=== PATIENT | female | born 1960 | race Two or more races ===

== ENCOUNTER 2024-02-26 06:56 | Emergency (ER) | payer MEDICAID, SELFPAY ==
[2024-02-26 06:57] VITALS: BMI 41.8
[2024-02-26 07:04] VITALS: BP 101/70; PULSE 87; RESP 18; TEMP 36.6; O2SAT 98
--- NOTE | 2024-02-26 07:18 | XR_ITS ---
Examination: Foot, left, 3 views Technique: AP, oblique, lateral views foot, 3 views Date and time of exam: February 25, 2022 0755 hours INDICATIONS: Patient fell today with injury to the foot, foot pain FINDINGS: No acute fracture No dislocation No foreign body IMPRESSION: No acute fracture
--- NOTE | 2024-02-26 07:18 | XR_ITS ---
Examination: Shoulder,right, 3 views Technique: Shoulder AP internal rotation, AP external rotation, Y view shoulder, 3 views Exam date and time :February 26, 2024 0755 hours INDICATIONS: Right shoulder pain beginning 6 months ago FINDINGS: Mild osteoarthritis glenohumeral joint Mild calcific tendinitis No fracture or shoulder dislocation IMPRESSION: Mild osteoarthritis glenohumeral joint Mild calcific tendinitis
[2024-02-26] MEDS: KETOROLAC INJ 30 MG/ML VIAL IM (07:44)
--- NOTE | 2024-02-26 09:34 | EDNOTE_ITS ---
ED Extremity Problem RME/HPI General Chief complaint: Extremity Problem,Nontraumatic Stated complaint: R SHOULDER PAIN [id number] Time Seen by Provider: 02/26/24 07:01 Arrival date/time: 02/26/24 06:56 63-year-old female presents to the emergency department today complaints of right shoulder pain which is acute on chronic as well as left foot pain after recent injury to the left foot patient reports that she has had previous right shoulder surgery with Dr. Watson there are no other associated symptoms or aggravat ing factors no other modifying factors, patient denies taking medication before coming to ER today Limitations: no limitations Related Data Home Medications ?Medication ?Instructions ?Recorded ?Confirmed ibuprofen 800 mg tablet 800 mg PO Q8HR PRN PAIN #0 tabs 01/31/14 08/17/21 albuterol sulfate 90 mcg/actuation 90 mcg IH BID PRN Wheezing ##0 10/08/14 08/17/21 breath activated powder inhaler (ProAir RespiClick) acetaminophen 500 mg tablet 500 mg PO Q6H PRN Pain 08/17/21 08/17/21 albuterol sulfate 90 mcg/actuation 2 puff inhalation Q6H PRN Wheezing 08/17/21 08/17/21 aerosol inhaler buspirone 5 mg tablet 1 tab PO BID 08/17/21 08/17/21 cyclobenzaprine 10 mg tablet 10 mg PO TID 08/17/21 08/17/21 diphenhydramine HCl 25 mg tablet 25 mg PO TID PRN Allergic Reaction 08/17/21 08/17/21 (Banophen) nifedipine 60 mg tablet,extended 60 mg PO QDAY 08/17/21 08/17/21 release 24 hr trazodone 100 mg tablet 100 mg PO QDAY 08/17/21 08/17/21 venlafaxine 150 mg 150 mg PO QAM 08/17/21 08/17/21 capsule,extended release 24 hr Previous Rx's ?Medication ?Instructions ?Recorded tramadol 50 mg tablet (Ultram) 1 - 2 tab PO Q6HR PRN PAIN #20 tabs 12/15/14 cyclobenzaprine 10 mg tablet 10 mg PO TID PRN muscle spasm 10 02/26/24 days #30 tab-caps hydrocodone 5 mg-acetaminophen 325 1 tab PO BID PRN pain #8 tabs 02/26/24 mg tablet ibuprofen 600 mg tablet 600 mg PO Q6H #30 tabs 02/26/24 Allergies Allergy/AdvReac Type Severity Reaction Status Date / Time No Known Allergies Allergy Verified 02/26/24 06:58 Review of Systems Review of Systems Systems Reviewed: All systems reviewed, normal except as documented Constitutional Constitutional: Reports system reviewed and no additional complaints, except as documented, Denies fever(s) and Denies headache(s) Eyes Eyes: Reports system reviewed and no additional complaints, except as documented and Denies blurry vision ENT Ears, Nose, Mouth, and Throat: Reports system reviewed and no additional complaints, except as documented, Denies headache(s), Denies nasal congestion and Denies nasal discharge Cardiovascular Cardiovascular: Reports system reviewed and no additional complaints, except as documented, Denies chest pain and Denies dyspnea Respiratory Respiratory: Reports system reviewed and no additional complaints, except as documented, Denies chest congestion, Denies cough and Denies dyspnea Gastrointestinal Gastrointestinal: Reports system reviewed and no additional complaints, except as documented and Denies abdominal pain Musculoskeletal Musculoskeletal: Reports system reviewed and no additional complaints, except as documented, Reports abnormal gait, Reports arthralgias and Reports other (Foot pain, shoulder pain) Integumentary/Breasts Skin/Breast: Reports system reviewed and no additional complaints, except as documented and Denies rash Neurologic Neurologic: Reports system reviewed and no additional complaints, except as documented, Reports as per HPI, Reports abnormal gait and Denies headache(s) Past Medical History Past Medical History NEUROLOGIC: Negative Neurological Disorders CARDIAC: Negative Cardiac Disorders ED Exam General Limitations: Present no limitations General appearance: Present alert and in no apparent distress Head Head exam: Present atraumatic Eye Eye exam: Present normal appearance, PERRL and EOMI ENT ENT exam: Present normal exam, normal oropharynx and mucous membranes moist Neck Neck exam: Present normal inspection, full ROM and trachea midline Chest Chest inspection: Present normal inspection and symmetric chest wall rise Respiratory Respiratory exam: Present normal lung sounds bilaterally Cardiovascular Cardiovascular exam: Present regular rate, normal rhythm and normal heart sounds Abdominal Exam Abdominal exam: Present soft and normal bowel sounds Extremities Exam Extremities exam: Present full ROM, tenderness, normal capillary refill and other (Foot pain left, shoulder pain right) Back Exam Back exam: Present normal inspection and full ROM Neurological Exam Neurological exam: Present alert, oriented X3 and CN II-XII intact Psychiatric Psychiatric exam: Present normal affect and normal mood Skin Skin exam: Present warm, dry, intact and normal color Course Quality Measures none Orders Category Date Time Status XR foot comp LT min 3V Stat Exams 02/26/24 07:18 Completed XR shoulder RT min 2V Stat Exams 02/26/24 07:18 Completed Ketorolac Inj [Toradol Inj] Med 02/26/24 07:25 Discontinued 30 mg IM X1 ONE Vital Signs Vital signs: Vital Signs Temperature 97.9 F 02/26/24 07:04 Pulse Rate 87 02/26/24 07:04 Respiratory Rate 18 02/26/24 07:04 Blood Pressure 101/70 02/26/24 07:04 Pulse Oximetry (%) 98 02/26/24 07:04 Oxygen Delivery Method Room Air 02/26/24 07:04 O2 saturation 98% on room air within normal limits Extremity Problem MDM Narrative MDM Narrative:: 63-year-old female presents to the emergency department today complaints of right shoulder pain which is acute on chronic as well as left foot pain after recent injury to the left foot patient reports that she has had previous right shoulder surgery with Dr. Watson there are no other associated symptoms or aggravating factors no other modifying factors, patient denies taking medication before coming to ER today Imaging obtained no acute emergent findings noted Patient given pain medication discharged home with pain meds On exam patient well-appearing patient does not appear ill or toxic patient walks with steady gait Patient discharged home in no distress to follow-up with orthopedist as discussed and for any worsening symptoms to return to the ER immediately Patient data External records reviewed:: [facility] previous records Clinical information provided by:: patient Social determinants that could affect healthcare access:: none Patient has the following chronic illnesses:: See history How is presenting disease/condition affected by chronic disease/condition?: exacerbated by Evaluation data The following diagnostics were reviewed and interpreted by me:: radiology exam(s) Lab and/or radiology exams considered but not ordered:: Radiology obtain Interpretation Summary: Reviewed by me Medications / Prescriptions Medications or Prescriptions considered but not ordered:: Given Medication administrations:: Medication Administration History Discontinued Medications Ketorolac Tromethamine (Ketorolac Inj 30 Mg/Ml Vial) 30 mg IM X1 ONE Stop: 02/26/24 07:26 Last Admin: 02/26/24 07:44 Dose: 30 mg Documented By: VG Given Consultations Consultation(s) initiated? (list below): No Diagnosis Most likely diagnosis given after review of the tests above:: Foot pain, foot fracture shoulder pain Admission Indicated Admission indicated?: not indicated Admission Request Was there a request for admission?: No Disposition Plan Disposition Plan: Discharge Discharge Attestation Discharge Attestation: The patient and all family members were given an opportunity to ask questions and understood the discharge instructions. Discharge instructions specifically effects, indications for sooner follow up or return to the emergency department, and the expected course of current diagnosis. Patient condition: Stable Discharge Plan Plan Patient Disposition: HOME (Self Care) Disposition Comment: Stable Prescriptions/Referrals Prescriptions/Med Rec: New cyclobenzaprine 10 mg tablet 10 mg PO TID PRN (Reason: muscle spasm) 10 Days Qty: 30 0RF hydrocodone-acetaminophen 5-325 mg tablet 1 tab PO BID MDD 10 PRN (Reason: pain) Qty: 8 0RF ibuprofen 600 mg tablet 600 mg PO Q6H Qty: 30 0RF No Action ibuprofen 800 MG tablet 800 mg PO Q8HR PRN (Reason: PAIN) Qty: 0 ProAir RespiClick 90 MCG aerosol powdr breath activated 90 mcg IH BID PRN (Reason: Wheezing) Qty: 0 tramadol [Ultram] 50 MG tablet 1 - 2 tab PO Q6HR PRN (Reason: PAIN) Qty: 20 0RF Rx Instructions: FOR PAIN, NOT TO EXCEED 8 TABS IN 24 HRS cyclobenzaprine 10 mg Tablet 10 mg PO TID buspirone 5 mg tablet 1 tab PO BID venlafaxine 150 mg Capsule,Extended Release 24hr 150 mg PO QAM acetaminophen 500 mg Tablet 500 mg PO Q6H PRN (Reason: Pain) nifedipine 60 mg Tablet Extended Release 24hr 60 mg PO QDAY trazodone 100 mg Tablet 100 mg PO QDAY diphenhydramine HCl [Banophen] 25 mg Tablet 25 mg PO TID PRN (Reason: Allergic Reaction) albuterol sulfate 90 mcg/actuation Hfa Aerosol Inhaler 2 puff INHALATION Q6H PRN (Reason: Wheezing) Referrals: Bucky King PA-C [Primary Care Provider] - In 1 week Problem List Clinical Impression: Acute pain of left foot, Chronic pain in right shoulder Patient/Caregiver Discharge Instructions Education Materials: ED RICE Additional Instructions: Please follow up with your primary care doctor in the next 24-48hrs for any worsening symptoms return here immediately Print Language: Fijian Stand Alone Forms: Brooke Award Info., Patient Portal Info Letter PA/[employer] Supervising Physician PA/[employer] Supervising Physician: Dr perez
== END 2024-02-26 09:45 | disposition home or self-care (01) ==
PROVIDERS: Emergency Provider Emergency Medicine; PCP Family Medicine
DX: M25.511 Pain in right shoulder (principal); M79.672 Pain in left foot; G89.29 Other chronic pain
CPT/HCPCS: 73030; 73630; 96372; 99283; J1885

== ENCOUNTER → 2024-07-03 | Outpatient (CLI) | payer MEDICARE, MEDICAID, SELFPAY ==
[2024-07-02 15:34] LABS: Albumin, Serum 4.1 gm/dL (3.4-4.8); Anion Gap 6 (7-16); BUN/Creatinine Ratio 15 Ratio (12-20); Blood Urea Nitrogen 18 mg/dL (9-23); Calcium 9.3 mg/dL (8.3-10.6); Calcium (Corrected) 9.3 mg/dL (8.5-10.1); Carbon Dioxide 30.3 mMol/L (20.0-31.0); Chloride 110 mMol/L (98-107); Creatinine (Component) 1.2 mg/dL (0.6-1.3); Glucose 91 mg/dL (74-106); Osmolality,Calculated 292 (275-295); Phosphorous 3.1 mg/dL (2.4-5.1); Sodium 146 mMol/L (136-145); eGFR 50 See Note
--- NOTE | 2024-07-03 14:30 | XR_ITS ---
Examination: MRI pelvis with intravenous contrast TECHNIQUE: Multiple axial sagittal coronal MR images pelvis post 18 cc gadolinium Examination type 07/03/2024 1538 hours INDICATIONS: Abnormally thickened endometrial stripe on outside ultrasound imaging this month, vaginal bleeding one year. FINDINGS: Uterus 10.6 x 5.3 x 5.9 cm Markedly abnormal thickened endometrial stripe, measuring up to 4.2 cm with irregular enhancement Ovaries are not enlarged, 9 mm left ovarian follicular cyst No common iliac and external iliac or common femoral lymphadenopathy IMPRESSION: Markedly thickened endometrial stripe with irregular enhancement, highest on the differential list is malignant neoplasm of the endometrium
== END | disposition home or self-care (01) ==
LOC: COPL 14:33
PROVIDERS: PCP Family Medicine
DX: R93.89 Abnormal findings on diagnostic imaging of other specified body structures (principal); F32.9 Major depressive disorder, single episode, unspecified; N18.31 Chronic kidney disease, stage 3a; I12.9 Hypertensive chronic kidney disease with stage 1 through stage 4 chronic kidney disease, or unspecified chronic kidney disease
CPT/HCPCS: 36415; 72196; 80069; A9579

== ENCOUNTER 2024-07-10 20:57 | Emergency (ER) | payer MEDICAID, SELFPAY ==
[2024-07-10 21:30] VITALS: BP 132/84; PULSE 82; RESP 20; TEMP 37.2; O2SAT 95; BMI 41.6
--- NOTE | 2024-07-10 21:37 | XR_ITS ---
Examination: CT brain head without contrast. 2-D sagittal coronal reconstructions Date and time of exam:July 10, 2024 and 47 hours INDICATIONS: Patient fell today with injury head, head pain CTDI: vol (mGy):76.7 DLP: (mGycm):409 Technique: Multiple CT axial sections of the brain have been obtained, 5 mm slice thickness. Contrast has not been administered. 2-D sagittal, coronal reconstructions have been obtained Low dose protocols were performed. One or more of the following dose reduction techniques were used; automated exposure control, adjustment of the mA and/or KV according to patient size, use of iterative reconstruction technique. Findings: No significant ventricular enlargement. Intra-axial or extra-axial hemorrhage density is not seen. No mass effect or midline shift Basal cisterns are not remarkable. Fourth ventricle is midline. Cranial vault intact. Impression: Negative for acute hemorrhage, mass effect or midline shift
--- NOTE | 2024-07-10 21:37 | XR_ITS ---
Examination: CT maxillofacial, without intravenous contrast. 2-D sagittal reconstructions. 3-D reconstructions. Date and time of exam:July 10, 2024 at 1047 hours INDICATIONS: Patient fell today with injury to the face, facial pain CTDI: vol (mGy):56.2 DLP: (mGycm):1014 Technique: Multiple axial images of maxillofacial region, 3.0 mm slice thickness. 2-D sagittal and coronal reconstructions. 3-D reconstructions. Low dose protocols were performed. One or more of the following dose reduction techniques were used; automated exposure control, adjustment of the mA and/or KV according to patient size, use of iterative reconstruction technique. Findings: Frontal bone is intact No nasal bone fracture Orbital rims intact No depression zygomatic arches The optic globes exhibit symmetry Pterygoid plates magnum of and the mandible is intact The left mandibular condyle is more anteriorly situated in the temporal articulating fossa compared to the right side without definite dislocation, clinical correlation advised IMPRESSION: No acute facial fracture.
--- NOTE | 2024-07-10 21:37 | XR_ITS ---
Examination: CT cervical spine without contrast 2-D sagittal reconstructions 2-D coronal reconstructions 3-D reconstructions. Exam date and time:July 10, 2024 1047 hours INDICATIONS: Patient fell today with injury to the neck, neck pain CTDI:vol (mGy) 56.2 DLP: (mGycm) 1000 Technique: Multiple 2 mm axial sections of the cervical spine have been obtained. The coronal and sagittal reconstructions have been obtained. 3-D reconstructions have been obtained. Low dose protocols were performed. One or more of the following dose reduction techniques were used; automated exposure control, adjustment of the mA and/or KV according to patient size, use of iterative reconstruction technique. Findings: Axial sections demonstrate intact base of the skull. C1 exhibit satisfactory relationship to the odontoid. No acute cervical vertebral body fracture seen. Alignment posterior spinous processes satisfactory. Impression: No acute cervical fracture.
[2024-07-10] MEDS: ACYCLOVIR 800 MG TABLET PO (22:04)
--- NOTE | 2024-07-11 04:36 | EDNOTE_ITS ---
<Statement entered by Jeri Lawler MD - 07/12/24 04:27> As co-signing physician, I was present and available for consult prn. I concur with the plan and care as documented by the midlevel provider. ED Head Injury RME/HPI General Chief complaint: Head Injury Stated complaint: GARCIA, DIZZINESS, FALLS SP HEAD INJURY Time Seen by Provider: 07/10/24 21:37 Arrival date/time: 07/10/24 20:57 64F with history of DM presents to ED with GARCIA and dizziness after trip and fall several days ago where she hit her head. Separately, patient has had a rash on the L side of her face for several days. Patient denies eye pain, irritation, blurry vision, and vision changes. Patient even went to eye doctor recently who did not address the eyelid rash, though patient did not have the full facial rash at the time. Limitations: no limitations Related Data Home Medications ?Medication ?Instructions ?Recorded ?Confirmed ibuprofen 800 mg tablet 800 mg PO Q8HR PRN PAIN #0 t abs 01/31/14 08/17/21 albuterol sulfate 90 mcg/actuation 90 mcg IH BID PRN W heezing ##0 10/08/14 08/17/21 breath activated powder inhaler (ProAir RespiClick) acetaminophen 500 mg tablet 500 mg PO Q6H PRN Pain 11/3008/17/21 albuterol sulfate 90 mcg/actuation 2 puff inhalation Q 6H PRN Wheezing 08/17/21 08/17/21 aerosol inhaler buspirone 5 mg tablet 1 tab PO BID 08/17/21 cyclobenzaprine 10 mg tablet 10 mg PO TID 08/17/2111/30 diphenhydramine HCl 25 mg tablet 25 mg PO TID PRN Oc rgic Reaction 08/17/21 08/17/21 (Banophen) nifedipine 60 mg tablet,extended 60 mg PO QDAY 2 08/17/21 release 24 hr trazodone 100 mg tablet 100 mg PO QDAY 08/17/2111/30 venlafaxine 150 mg 150 mg PO QAM 08/17/2108/17 capsule,extended release 24 hr Previous Rx's ?Medication ?Instructions ?Recorded tramadol 50 mg tablet (Ultram) 1 - 2 tab PO Q6HR PRN P AIN #20 tabs 12/15/14 hydrocodone 5 mg-acetaminophen 325 1 tab PO BID PRN pa in #8 tabs 02/26/24 mg tablet ibuprofen 600 mg tablet 600 mg PO Q6H #30 tabs 02/25 acyclovir 800 mg tablet 800 mg PO Q4H 10 days #60 ta bs 07/11/24 Allergies Allergy/AdvReac Type Severity Reaction Status Date / Time No Known Allergies Allergy Verified 02/26/24 06:58 Review of Systems Review of Systems Systems Reviewed: All systems reviewed, normal except as documented Constitutional Constitutional: Reports system reviewed and no additional complaints, except as documented, Reports as per HPI, Denies fever(s) and Reports headache(s) ENT Ears, Nose, Mouth, and Throat: Reports as per HPI, Denies disequilibrium, Reports headache(s) and Reports vertigo Cardiovascular Cardiovascular: Reports system reviewed and no additional complaints, except as documented, Denies chest pain and Denies dyspnea Respiratory Respiratory: Reports system reviewed and no additional complaints, except as documented, Denies cough and Denies dyspnea Gastrointestinal Gastrointestinal: Reports system reviewed and no additional complaints, except as documented, Denies abdominal pain, Denies nausea and Denies vomiting Integumentary/Breasts Skin/Breast: Reports as per HPI, Reports rash and Reports skin pain Neurologic Neurologic: Reports system reviewed and no additional complaints, except as documented, Denies confusion, Denies disequilibrium, Reports headache(s) and Reports vertigo Psychiatric Psychiatric: Denies confusion Past Medical History Past Medical History NEUROLOGIC: Positive Cerebrovascular Accident (RIGHT SIDE ER VISIT) and Transient Ischemic Attacks (TIA) (NOT DIAGNOSED); Negative Neurological Disorders or Seizures CARDIAC: Positive Hypercholesterolemia (STOP MED PER PT) and Hypertension; Negative Cardiac Disorders, Congestive Heart Failure, Edema or Cellulitis RESPIRATORY: Positive Chronic Obstructive Pulmonary Disease (COPD) (HAS INHALER), Asthma and Tuberculosis (as a child, was treated) GASTROINTESTINAL: Positive Gastrointestinal Disorders, Gall Bladder Disease (NO SURG) and Gastroesophageal Reflux Disease; Negative Hepatitis GENITOURINARY: Positive Genitourinary Disorders (kidney infection due to stones) and Kidney Stones (NO SURG); Negative Renal Disease REPRODUCTIVE: Positive Previous Pregnancies (X4) MUSCULOSKELETAL: Positive Musculoskeletal Disorders and Arthritis ENDOCRINE: Positive Endocrine Disorders and Diabetes Mellitus Type 2 (no current medication); Negative Diabetes Mellitus Type 1 HEMATOLOGIC: Negative Blood Disorders PSYCHO/SOCIAL: Positive Depression (TAKES MED) and Anxiety (TAKES MED) OTHER HISTORY: Positive Falls (NO ER VISIT 05/30); Negative Hospitalization, Autoimmune Disease, Shingles, Blood Transfusions, Blood Transfusion Reaction, Anesthesia Reactions, Chemotherapy, Radiation Therapy, MRSA, Chicken Pox, Measles, Mumps or Cancer Family History FAMILY HISTORY: Positive Family Cardiac Disorders (FATHER ([place],HTN)) and Family Surgery (FATHER,MOTHER); Negative Family Psychiatric Problems, Family Respiratory Disorders, Family Gastrointestinal Problems, Family Cancer or Family Anesthesia Reaction Surgical History SURGICAL: Positive Tubal Ligation; Negative Cardiac Surgery or Pacemaker Social History SMOKING STATUS: Current every day smoker ED Exam General Limitations: Present no limitations General appearance: Present alert and in no apparent distress Head Head exam: Present atraumatic Eye Eye exam: Present normal appearance, PERRL and EOMI ENT ENT exam: Present normal exam, normal oropharynx and mucous membranes moist Neck Neck exam: Present normal inspection, full ROM and trachea midline Chest Chest inspection: Present normal inspection and symmetric chest wall rise Respiratory Respiratory exam: Present normal lung sounds bilaterally Cardiovascular Cardiovascular exam: Present regular rate, normal rhythm and normal heart sounds Abdominal Exam Abdominal exam: Present soft and normal bowel sounds Extremities Exam Extremities exam: Present normal inspection and full ROM Back Exam Back exam: Present normal inspection and full ROM Neurological Exam Neurological exam: Present alert, oriented X3 and CN II-XII intact Psychiatric Psychiatric exam: Present normal affect and normal mood Skin Skin exam: Present warm, dry, intact, normal color and rash Course Quality Measures none Orders Category Date Time Status CT cervical spine wo con Stat Exams 07/10/24 21:[address] facial bones wo con Stat Exams 07/10/24 21:[address] head/brain wo con Stat Exams 07/10/24 21:37 Completed Acyclovir [Zovirax] Med 07/10/24 21:43 Discontinued 800 mg PO X1 ONE Vital Signs Vital signs: Vital Signs Temperature 99 F 07/10/24 21:30 Pulse Rate 82 07/10/24 21:30 Respiratory Rate 20 07/10/24 21:30 Blood Pressure 132/84 H 07/10/24 21:30 Pulse Oximetry (%) 95 07/10/24 21:30 Oxygen Delivery Method Room Air 07/10/24 21:30 O2 at 99% on RA and WNLs Head Injury MDM Narrative MDM Narrative:: 64F with history of DM presents to ED with GARCIA and dizziness after trip and fall several days ago where she hit her head. Separately, patient has had a rash on the L side of her face for several days. Patient denies eye pain, irritation, blurry vision, and vision changes. Patient even went to eye doctor recently who did not address the eyelid rash, though patient did not have the full facial rash at the time. Physical exam reveals L-facial vesicular rash along CN V1 path. No current eye involvement. Normal pupil response and EOM. No gross head trauma. Patient is afebrile, calm, and alert. CT no acute abnormalities. Escort Patients given including to call back eye doctor in the morning for them to re-evaluate her. Patient data External records reviewed:: [facility] previous records Clinical information provided by:: patient Social determinants that could affect healthcare access:: none Patient has the following chronic illnesses:: DM How is presenting disease/condition affected by chronic disease/condition?: exacerbated by Evaluation data The following diagnostics were reviewed and interpreted by me:: radiology exam(s) Lab and/or radiology exams considered but not ordered:: ordered Interpretation Summary: above Medications / Prescriptions Medications or Prescriptions considered but not ordered:: ordered Medication administrations:: Medication Administration History Discontinued Medications Acyclovir (Acyclovir 800 Mg Tablet) 800 mg PO X1 ONE Stop: 07/10/24 21:44 Last Admin: 07/10/24 22:04 Dose: 800 mg Documented By: above Consultations Consultation(s) initiated? (list below): No Diagnosis Differential diagnosis head injury: concussion without loss of consciousness, epidural hematoma, closed head injury, subarachnoid hematoma, postconcussion syndrome, subdural hematoma and other (shingles of eyelid) Most likely diagnosis given after review of the tests above:: shingles of eyelid and CHI Admission Indicated Admission indicated?: not indicated Admission Request Was there a request for admission?: No Disposition Plan Disposition Plan: Discharge Discharge Attestation Discharge Attestation: The patient and all family members were given an opportunity to ask questions and understood the discharge instructions. Discharge instructions specifically effects, indications for sooner follow up or return to the emergency department, and the expected course of current diagnosis. Patient condition: Stable Discharge Plan Plan Patient Disposition: HOME (Self Care) Discharge Disposition comment: Stable Prescriptions/Referrals Prescriptions/Med Rec: New acyclovir 800 mg tablet 800 mg PO Q4H 10 Days Qty: 60 0RF Rx Instructions: while awake; give 5 doses in 24 hours No Action ibuprofen 800 MG tablet 800 mg PO Q8HR PRN (Reason: PAIN) Qty: 0 ProAir RespiClick 90 MCG aerosol powdr breath activated 90 mcg IH BID PRN (Reason: Wheezing) Qty: 0 tramadol [Ultram] 50 MG tablet 1 - 2 tab PO Q6HR PRN (Reason: PAIN) Qty: 20 0RF Rx Instructions: FOR PAIN, NOT TO EXCEED 8 TABS IN 24 HRS cyclobenzaprine 10 mg Tablet 10 mg PO TID buspirone 5 mg tablet 1 tab PO BID venlafaxine 150 mg Capsule,Extended Release 24hr 150 mg PO QAM acetaminophen 500 mg Tablet 500 mg PO Q6H PRN (Reason: Pain) nifedipine 60 mg Tablet Extended Release 24hr 60 mg PO QDAY trazodone 100 mg Tablet 100 mg PO QDAY diphenhydramine HCl [Banophen] 25 mg Tablet 25 mg PO TID PRN (Reason: Allergic Reaction) albuterol sulfate 90 mcg/actuation Hfa Aerosol Inhaler 2 puff INHALATION Q6H PRN (Reason: Wheezing) hydrocodone-acetaminophen 5-325 mg tablet 1 tab PO BID MDD 10 PRN (Reason: pain) Qty: 8 0RF ibuprofen 600 mg tablet 600 mg PO Q6H Qty: 30 0RF Referrals: Bucky King PA-C [Primary Care Provider] - In 1 week Problem List Clinical Impression: Closed head injury, Shingles of eyelid Patient/Caregiver Discharge Instructions Education Materials: Shingles (Herpes Zoster), ED Head Injury (Adult) Additional Instructions: Please follow-up with PCP within 24-48 hours and return immediately if symptoms worsen. Need to have close follow-up with eye doctor if any eye involvement. Print Language: Mongolian Stand Alone Forms: Patient Portal Info Letter MARQUIS/ARLENE Supervising Physician MARQUIS/ARLENE Supervising Physician: Dr. Lawler
== END 2024-07-11 00:38 | disposition home or self-care (01) ==
PROVIDERS: Emergency Provider Emergency Medicine; PCP Family Medicine
DX: S09.90XA Unspecified injury of head, initial encounter (principal); B02.9 Zoster without complications; W01.0XXA Fall on same level from slipping, tripping and stumbling without subsequent striking against object, initial encounter
CPT/HCPCS: 70450; 70486; 72125; 99284; A9270

== ENCOUNTER 2024-08-26 07:23 | Emergency (ER) | payer MEDICARE, MEDICAID, SELFPAY ==
[2024-08-26 07:24] VITALS: BMI 40.4
[2024-08-26 07:34] VITALS: BP 125/79; PULSE 83; RESP 18; TEMP 36.6; O2SAT 96
--- NOTE | 2024-08-26 07:35 | XR_ITS ---
Examination: CT cervical spine without contrast 2-D sagittal reconstructions 2-D coronal reconstructions 3-D reconstructions. Exam date and time:August 26, 2024 0814 hours Comparison July 10, 2024 INDICATIONS: Onset neck pain radiating to the shoulders beginning last night CTDI:vol (mGy) 21.7 DLP: (mGycm) 472 Technique: Multiple 2 mm axial sections of the cervical spine have been obtained. The coronal and sagittal reconstructions have been obtained. 3-D reconstructions have been obtained. Low dose protocols were performed. One or more of the following dose reduction techniques were used; automated exposure control, adjustment of the mA and/or KV according to patient size, use of iterative reconstruction technique. Findings: Axial sections demonstrate intact base of the skull. C1 exhibit satisfactory relationship to the odontoid. No acute cervical vertebral body fracture seen. Alignment posterior spinous processes satisfactory. Advanced degenerative disc disease C3-C4, C4-C5, C5-C6, C6-C7 C3-C4 moderate left neural foraminal stenosis C4-C5 moderate left neural foraminal stenosis C5-C6 moderate left neural foraminal stenosis C6-C7 moderate left neural foraminal stenosis Impression: No acute cervical fracture. Advanced degenerative disc disease C3-C4, C4-C5, C5-C6, C6-C7 Moderate left neural foraminal stenosis C3-C4, C4-C5, C5-C6, C6-C7 Consider elective MRI cervical spine follow-up to best assess full extent of acquired soft tissue spinal stenosis
[2024-08-26] MEDS: CYCLObenzaPRINE 5 MG TABLET 10 MG PO (07:40)
[2024-08-26] MEDS: HYDROcodone/APAP 5/325 TABLET 1 TAB PO (07:40)
--- NOTE | 2024-08-26 09:39 | EDNOTE_ITS ---
ED Neck Injury Pain RME/HPI General Chief Complaint: Neck Pain/Injury Stated Complaint: RIGHT NECK PAIN RADIATING TO SHOULDER/HEAD Time Seen by Provider: 08/26/24 07:26 Arrival date/time: 08/26/24 07:23 64-year-old female presents to the emergency department today for complaints of right-sided neck pain worse with movement patient reports the pain radiates to the base of her skull and down her right shoulder patient reports no direct trauma patient denies numbness or tingling Limitations: no limitations Related Data Home Medications ?Medication ?Instructions ?Recorded ?Confirmed ibuprofen 800 mg tablet 800 mg PO Q8HR PRN PAIN #0 t abs 01/31/14 08/17/21 albuterol sulfate 90 mcg/actuation 90 mcg IH BID PRN W heezing ##0 10/08/14 08/17/21 breath activated powder inhaler (ProAir RespiClick) acetaminophen 500 mg tablet 500 mg PO Q6H PRN Pain 11/3008/17/21 albuterol sulfate 90 mcg/actuation 2 puff inhalation Q 6H PRN Wheezing 08/17/21 08/17/21 aerosol inhaler buspirone 5 mg tablet 1 tab PO BID 08/17/21 cyclobenzaprine 10 mg tablet 10 mg PO TID 08/17/2111/30 diphenhydramine HCl 25 mg tablet 25 mg PO TID PRN Oc rgic Reaction 08/17/21 08/17/21 (Banophen) nifedipine 60 mg tablet,extended 60 mg PO QDAY 2 08/17/21 release 24 hr trazodone 100 mg tablet 100 mg PO QDAY 08/17/2111/30 venlafaxine 150 mg 150 mg PO QAM 08/17/2108/17 capsule,extended release 24 hr Previous Rx's ?Medication ?Instructions ?Recorded tramadol 50 mg tablet (Ultram) 1 - 2 tab PO Q6HR PRN P AIN #20 tabs 12/15/14 hydrocodone 5 mg-acetaminophen 325 1 tab PO BID PRN pa in #8 tabs 02/26/24 mg tablet ibuprofen 600 mg tablet 600 mg PO Q6H #30 tabs 02/25 cyclobenzaprine 10 mg tablet 10 mg PO TID PRN muscle s pasm 10 08/26/24 days #30 tab-caps hydrocodone 5 mg-acetaminophen 325 1 tab PO BID PRN pa in #8 tabs 08/26/24 mg tablet ibuprofen 800 mg tablet 800 mg PO TID PRN pain #30 t abs 08/26/24 Allergies Allergy/AdvReac Type Severity Reaction Status Date / Time No Known Allergies Allergy Verified 08/26/24 07:27 Review of Systems Review of Systems Systems Reviewed: All systems reviewed, normal except as documented Constitutional Constitutional: Reports system reviewed and no additional complaints, except as documented, Denies fever(s) and Denies headache(s) Eyes Eyes: Reports system reviewed and no additional complaints, except as documented and Denies blurry vision ENT Ears, Nose, Mouth, and Throat: Reports system reviewed and no additional complaints, except as documented, Denies headache(s), Denies nasal congestion and Denies nasal discharge Cardiovascular Cardiovascular: Reports system reviewed and no additional complaints, except as documented, Denies chest pain and Denies dyspnea Respiratory Respiratory: Reports system reviewed and no additional complaints, except as documented, Denies chest congestion, Denies cough and Denies dyspnea Gastrointestinal Gastrointestinal: Reports system reviewed and no additional complaints, except as documented and Denies abdominal pain Musculoskeletal Musculoskeletal: Reports system reviewed and no additional complaints, except as documented, Denies deformity, Denies numbness, Reports stiffness and Denies tingling Integumentary/Breasts Skin/Breast: Reports system reviewed and no additional complaints, except as documented and Denies rash Neurologic Neurologic: Reports system reviewed and no additional complaints, except as documented, Reports as per HPI, Denies headache(s), Denies numbness and Denies tingling Past Medical History Past Medical History NEUROLOGIC: Positive Cerebrovascular Accident (RIGHT SIDE ER VISIT) and Transient Ischemic Attacks (TIA) (NOT DIAGNOSED); Negative Neurological Disorders or Seizures CARDIAC: Positive Hypercholesterolemia (STOP MED PER PT) and Hypertension; Negative Cardiac Disorders, Congestive Heart Failure, Edema or Cellulitis RESPIRATORY: Positive Chronic Obstructive Pulmonary Disease (COPD) (HAS INHALER), Asthma and Tuberculosis (as a child, was treated) GASTROINTESTINAL: Positive Gastrointestinal Disorders, Gall Bladder Disease (NO SURG) and Gastroesophageal Reflux Disease; Negative Hepatitis GENITOURINARY: Positive Genitourinary Disorders (kidney infection due to stones) and Kidney Stones (NO SURG); Negative Renal Disease REPRODUCTIVE: Positive Previous Pregnancies (X4) MUSCULOSKELETAL: Positive Musculoskeletal Disorders and Arthritis ENDOCRINE: Positive Endocrine Disorders and Diabetes Mellitus Type 2 (no current medication); Negative Diabetes Mellitus Type 1 HEMATOLOGIC: Negative Blood Disorders PSYCHO/SOCIAL: Positive Depression (TAKES MED) and Anxiety (TAKES MED) OTHER HISTORY: Positive Falls (NO ER VISIT 05/30); Negative Hospitalization, Autoimmune Disease, Shingles, Blood Transfusions, Blood Transfusion Reaction, Anesthesia Reactions, Chemotherapy, Radiation Therapy, MRSA, Chicken Pox, Measles, Mumps or Cancer Family History FAMILY HISTORY: Positive Family Cardiac Disorders (FATHER (WI,HTN)) and Family Surgery (FATHER,MOTHER); Negative Family Psychiatric Problems, Family Respiratory Disorders, Family G astrointestinal Problems, Family Cancer or Family Anesthesia Reaction Surgical History SURGICAL: Positive Tubal Ligation; Negative Cardiac Surgery or Pacemaker Social History SMOKING STATUS: Current every day smoker ED Exam General Limitations: Present no limitations General appearance: Present alert and in no apparent distress Head Head exam: Present atraumatic, normocephalic and normal inspection Eye Eye exam: Present normal appearance, PERRL and EOMI; Absent conjunctival injection ENT ENT exam: Present normal exam, normal oropharynx and mucous membranes moist Neck Neck exam: Present normal inspection, full ROM, trachea midline and tenderness; Absent meningismus, lymphadenopathy or thyromegaly Chest Chest inspection: Present normal inspection and symmetric chest wall rise; Absent tenderness Respiratory Respiratory exam: Present normal lung sounds bilaterally Cardiovascular Cardiovascular exam: Present regular rate, normal rhythm and normal heart sounds Abdominal Exam Abdominal exam: Present soft and normal bowel sounds Extremities Exam Extremities exam: Present normal inspection and full ROM Back Exam Back exam: Present normal inspection and full ROM Neurological Exam Neurological exam: Present alert, oriented X3 and CN II-XII intact Psychiatric Psychiatric exam: Present normal affect and normal mood Skin Skin exam: Present warm, dry, intact and normal color Course Quality Measures none Orders Category Date Time Status CT cervical spine wo con Stat Exams 08/26/24 07:35 Completed CYCLObenzaPRINE [Flexeril] Med 08/26/24 07:35 Discontinued 10 mg PO X1 ONE HYDROcodone*/APAP 5/325 [[place] 5/325] Med 08/26/24 07:35 Discontinued 1 tab PO X1 ONE Vital Signs Vital signs: Vital Signs Temperature 97.8 F 08/26/24 07:34 Pulse Rate 83 08/26/24 07:34 Respiratory Rate 18 08/26/24 07:34 Blood Pressure 125/79 08/26/24 07:34 Pulse Oximetry (%) 96 08/26/24 07:34 Oxygen Delivery Method Room Air 08/26/24 07:34 O2 saturation 96% room air within normal limits Neck Pain MDM Narrative MDM Narrative:: 64-year-old female presents to the emergency department today for complaints of right-sided neck pain worse with movement patient reports the pain radiates to the base of her skull and down her right shoulder patient reports no direct trauma patient denies numbness or tingling On exam patient alert. Patient is not appear toxic no acute distress Imaging obtained no acute emergent findings noted Patient has chronic degenerative disc disease as well as cervical stenosis Explained to the patient should have outpatient MRI and referral to specialist Patient discharged home in no distress to follow-up with primary care doctor in the next 24 to 48 hours and for any worsening symptoms to return to the ER immediately Patient data External records reviewed:: [facility] previous records Clinical information provided by:: patient Social determinants that could affect healthcare access:: none Patient has the following chronic illnesses:: See history How is presenting disease/condition affected by chronic disease/condition?: caused by Evaluation data The following diagnostics were reviewed and interpreted by me:: radiology exam(s) Lab and/or radiology exams considered but not ordered:: Radiology obtain Interpretation Summary: Reviewed by me Medications / Prescriptions Medications or Prescriptions considered but not ordered:: Given Medication administrations:: Medication Administration History Discontinued Medications Hydrocodone Bitart/Acetaminophen (Hydrocodone/Apap 5/325 Tablet) 1 tab PO X1 ONE Stop: 08/26/24 07:36 Last Admin: 08/26/24 07:40 Dose: 1 tab Documented By: FATUMA Cyclobenzaprine HCl (Cyclobenzaprine 5 Mg Tablet) 10 mg PO X1 ONE Stop: 08/26/24 07:36 Last Admin: 08/26/24 07:40 Dose: 10 mg Documented By: FATUMA Given Consultations Consultation(s) initiated? (list below): No Diagnosis Neck Differential Diagnosis: disc disorder of cervical region, whiplash injury to neck and other (Neck pain) Most likely diagnosis given after review of the tests above:: Neck pain Admission Indicated Admission indicated?: not indicated Admission Request Was there a request for admission?: No Disposition Plan Disposition Plan: Discharge Discharge Attestation Discharge Attestation: The patient and all family members were given an opportunity to ask questions and understood the discharge instructions. Discharge instructions specifically effects, indications for sooner follow up or return to the emergency department, and the expected course of current diagnosis. Patient condition: Stable Discharge Plan Plan Patient Disposition: HOME (Self Care) Discharge Disposition comment: Stable Prescriptions/Referrals Prescriptions/Med Rec: New cyclobenzaprine 10 mg tablet 10 mg PO TID PRN (Reason: muscle spasm) 10 Days Qty: 30 0RF ibuprofen 800 mg tablet 800 mg PO TID PRN (Reason: pain) Qty: 30 0RF hydrocodone-acetaminophen 5-325 mg tablet 1 tab PO BID MDD 10 PRN (Reason: pain) Qty: 8 0RF No Action ibuprofen 800 MG tablet 800 mg PO Q8HR PRN (Reason: PAIN) Qty: 0 ProAir RespiClick 90 MCG aerosol powdr breath activated 90 mcg IH BID PRN (Reason: Wheezing) Qty: 0 tramadol [Ultram] 50 MG tablet 1 - 2 tab PO Q6HR PRN (Reason: PAIN) Qty: 20 0RF Rx Instructions: FOR PAIN, NOT TO EXCEED 8 TABS IN 24 HRS cyclobenzaprine 10 mg Tablet 10 mg PO TID buspirone 5 mg tablet 1 tab PO BID venlafaxine 150 mg Capsule,Extended Release 24hr 150 mg PO QAM acetaminophen 500 mg Tablet 500 mg PO Q6H PRN (Reason: Pain) nifedipine 60 mg Tablet Extended Release 24hr 60 mg PO QDAY trazodone 100 mg Tablet 100 mg PO QDAY diphenhydramine HCl [Banophen] 25 mg Tablet 25 mg PO TID PRN (Reason: Allergic Reaction) albuterol sulfate 90 mcg/actuation Hfa Aerosol Inhaler 2 puff INHALATION Q6H PRN (Reason: Wheezing) hydrocodone-acetaminophen 5-325 mg tablet 1 tab PO BID MDD 10 PRN (Reason: pain) Qty: 8 0RF ibuprofen 600 mg tablet 600 mg PO Q6H Qty: 30 0RF Referrals: Bucky King PA-C [Primary Care Provider] - In 1 week Problem List Clinical Impression: Degenerative disc disease, cervical, Cervical stenosis of spine Patient/Caregiver Discharge Instructions Education Materials: ED Neck Pain Additional Instructions: Please follow up with your primary care doctor in the next 24-48hrs for any worsening symptoms return here immediately Print Language: Estonian Stand Alone Forms: Brooke Award Info., Patient Portal Info Letter PA/LINE DECORATOR Supervising Physician MARQUIS/LINE DECORATOR Supervising Physician: Dr. alarcon
[2024-08-26 09:49] VITALS: BP 115/72; PULSE 80; RESP 19; O2SAT 97
== END 2024-08-26 09:49 | disposition home or self-care (01) ==
PROVIDERS: Emergency Provider Emergency Medicine; PCP Family Medicine
DX: M50.31 Other cervical disc degeneration, high cervical region (principal); M48.02 Spinal stenosis, cervical region
CPT/HCPCS: 72125; 99284; A9270

== ENCOUNTER 2024-09-16 06:45 | Day surgery (SDC) | payer MEDICARE, MEDICAID, SELFPAY ==
[2024-09-15 09:18] VITALS: BMI 41.4
--- NOTE | 2024-09-15 09:40 | EKG_ITS ---
[facility] Test Date: 2024-09-15 Pat Name: DEENA WEINBERG Department: Room: - Gender: Female Principal Systems Architect: NEVILLE : 1960 Requested By: Zev Rashid Order Number: [id number] Reading MD: Zev Rashid Measurements Intervals [place] Rate: 70 P: 14 MT: 182 QRS: -21 QRSD: 93 T: 31 QT: 404 QTc: 436 Interpretive Statements SINUS RHYTHM BORDERLINE LEFT AXIS DEVIATION [QRS AXIS < -20] Compared to ECG 01/06/2023 14:28:12 Myocardial infarct finding no longer present /store/S0/[id number].pdf
[2024-09-15 10:27] LABS: Basophils # (Auto) 0.0 Thou/mm3 (0.0-0.2); Basophils % (Auto) 0 % (0-2.5); Eosinophils # (Auto) 0.4 Thou/mm3 (0.0-0.5); Eosinophils % (Auto) 4 % (0-10); Hematocrit 40.1 % (36.0-46.0); Hemoglobin 13.1 g/dL (12.0-16.0); Immature Granulocytes Auto 0.03 Thou/mm3 (0.00-0.00); Lymphocytes # (Auto) 2.5 Thou/mm3 (1.0-4.8); Lymphocytes % (Auto) 28 % (10-50); Mean Corpuscular HGB Conc 32.7 g/dl (31.0-37.0); Mean Corpuscular Hemoglobin 30.2 pg (25.0-35.0); Mean Corpuscular Volume 92 fL (80-100); Monocytes # (Auto) 0.5 Thou/mm3 (0.0-0.8); Monocytes % (Auto) 6 % (0-12); Neutrophils # (Auto) 5.5 Thou/mm3 (1.8-7.7); Neutrophils % (Auto) 62 % (37-80); Nucleated Red Blood Cell # 0.00 Thou/mm3 (0.00-0.00); Nucleated Red Blood Cell % 0 /100 WBC (0); Platelet Count 251 Thou/mm3 (140-440); RDW Standard Deviation 44.4 fL (36.4-46.3); Red Blood Count 4.34 Miln/mm3 (4.00-5.20); White Blood Count 9.0 Thou/mm3 (3.6-11.0)
[2024-09-15 10:48] LABS: Alanine Aminotransferase 32 U/L (10-49); Albumin, Serum 4.1 gm/dL (3.4-4.8); Albumin/Globulin Ratio 1.4 (1.2-2.2); Alkaline Phosphatase 120 U/L (46-116); Anion Gap 8 (7-16); Aspartate Amino Transferase 30 U/L (0-34); BUN/Creatinine Ratio 9 Ratio (12-20); Bilirubin,Total 0.4 mg/dL (0.3-1.2); Blood Urea Nitrogen 12 mg/dL (9-23); Calcium 9.1 mg/dL (8.3-10.6); Calcium (Corrected) 9.1 mg/dL (8.5-10.1); Carbon Dioxide 31.7 mMol/L (20.0-31.0); Chloride 106 mMol/L (98-107); Creatinine (Component) 1.3 mg/dL (0.6-1.3); Estimated Creatinine Clearance 43.0 mL/min (>60); Globulin 3.0 gm/dL (2.3-3.5); Glucose 103 mg/dL (74-106); Osmolality,Calculated 290 (275-295); Potassium 3.8 mMol/L (3.4-5.1); Sodium 146 mMol/L (136-145); Total Protein 7.1 gm/dL (5.7-8.2); eGFR 46 See Note
[2024-09-15 11:39] LABS: Hepatitis A Antibody IgM Non Reactive (Non React); Hepatitis B Core Antibody IgM Non Reactive (Non React); Hepatitis B Surface Antigen Non Reactive (Non React); Hepatitis C Antibody Non Reactive (Non React)
[2024-09-15 12:40] LABS: HIV (1&2) Antibody Rapid Non-Reactive
[2024-09-16] VITALS (8 sets, daily range): BP systolic 97–112; BP diastolic 57–75; PULSE 68–73; RESP 12–20; TEMP 36.4–36.8; O2SAT 94–100; BMI 41.2
[2024-09-16] MEDS: RINGERS LACTATED 1000 ML 1,000 ML 20 ML IV (07:20)
[2024-09-16] MEDS: ALBUTEROL RT 2.5 MG/3 ML NEBU INH (07:51)
--- NOTE | 2024-09-16 08:36 | PD.GYNHP ---
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 WEINBERG is a 64 year old female admitted for postmenopausal bleeding . Pt had an Ultrasound with >4mm endometrial thickness. Pt denies any other medical history Meds Home Medications and Allergies Home Medications ?Medication ?Instructions ?Recorded ?Confirmed ?Type albuterol sulfate 90 mcg/actuation 90 mcg IH BID PRN Wheezing ##0 10/08/14 09/16/24 History breath activated powder inhaler (ProAir RespiClick) acetaminophen 500 mg tablet 500 mg PO Q6H PRN Pain 08/17/21 09/16/24 History albuterol sulfate 90 mcg/actuation 2 puff inhalation Q6H PRN Wheezing 08/17/21 09/16/24 History aerosol inhaler buspirone 5 mg tablet 1 tab PO BID 08/17/21 09/16/24 History cyclobenzaprine 10 mg tablet 10 mg PO TID 08/17/21 09/16/24 History diphenhydramine HCl 25 mg tablet 25 mg PO TID PRN Allergic Reaction 08/17/21 09/16/24 History (Banophen) nifedipine 60 mg tablet,extended 60 mg PO QDAY 08/17/21 09/16/24 History release 24 hr trazodone 100 mg tablet 150 mg PO QDAY 08/17/21 09/16/24 History venlafaxine 150 mg 150 mg PO QAM 08/17/21 09/16/24 History capsule,extended release 24 hr atorvastatin 20 mg tablet 20 mg PO QDAY 09/16/24 09/16/24 History gabapentin 600 mg tablet 600 mg PO QDAY 09/16/24 09/16/24 History hydroxyzine HCl 25 mg tablet 25 mg PO QDAY 09/16/24 09/16/24 History Allergies Allergy/AdvReac Type Severity Reaction Status Date / Time No Known Allergies Allergy Verified 09/16/24 07:00 Exam - STRATEGIC ALLIANCES MANAGER Vital Signs Temp Pulse Resp BP Pulse Ox 97.9 F 71 16 109/75 94 L 09/16/24 07:20 09/16/24 07:51 09/16/24 07:20 09/16/24 07:20 09/16/24 07:20 Constitutional Constitutional: no acute distress Routine HEENT Exam Head: Present normocephalic and atraumatic Eye: Present EOMI and PERRL ENT: Present mucous membranes moist Routine Neck Exam Neck: Present supple and trachea midline Routine Respiratory Exam Respiratory: Present chest non-tender, lungs clear, normal breath sounds and no resp distress Routine Cardiovascular Exam Cardiovascular: Present RRR Routine Abdominal Exam Abdominal: Present soft and normoactive bowel sounds Routine Extremities Exam Extremities: Present full ROM Routine Skin Exam Skin: Present intact and dry Routine Neurological Exam Neurological: Present alert, oriented X3 and CN II-XII intact Routine Psychiatric Exam Psychiatric: Present normal affect and normal thought process STRATEGIC ALLIANCES MANAGER - Results Labs 09/15/24 10:11 09/15/24 10:11 Labs: Short CBC 09/15/24 Range/Units 10:11 WBC 9.0 (3.6-11.0) Thou/mm3 Hgb 13.1 (12.0-16.0) g/dL Hct 40.1 (36.0-46.0) % Plt Count 251 (140-440) Thou/mm3 BMP 09/15/24 10:11 Sodium 146 H Potassium 3.8 Chloride 106 Carbon Dioxide 31.7 H BUN 12 Creatinine 1.3 Glucose 103 Calcium 9.1 Liver Function 09/15/24 Range/Units 10:11 Total Bilirubin 0.4 (0.3-1.2) mg/dL AST 30 (0-34) U/L ALT 32 (10-49) U/L Alkaline Phosphatase 120 H (46-116) U/L Albumin 4.1 (3.4-4.8) gm/dL Impressions Impression: 64-year-old admitted for postmenopausal bleeding with endometrial thickness more than 4 mm for a diagnostic hysteroscopy. Patient understands the risk of perforation and bleeding Quality Measures Quality Measures VTE prophylaxis Advance care planning discussed with:: patient
--- NOTE | 2024-09-16 08:45 | CHAP ---
Patient was being taken to surgery. I gave her some words of encouragement and prayer before they left.
--- NOTE | 2024-09-16 09:39 | SUR.PHASEI ---
0939 Patient arrived to recovery resting comfortably in [facility], on oxygen 8L via oxy mask with an oral airway in place breathing unlabored, vital signs stable, dressing intact to vaginal area; peripad, no bleeding noted, report received from Bishop COVARRUBIAS and Dr. Rm
--- NOTE | 2024-09-16 10:22 | ESOP_ITS ---
Operative Note - PACKAGE COLLECTOR Procedure Date of procedure: 09/16/24 Procedure Performed: Hysteroscopy, diagnostic Dilation and curettage Indication: Postmenopausal bleeding Pre-Op diagnosis: Same Post-Op diagnosis: Same Anesthesia type: General Procedure description: The patient was seen prior to surgery. The potential benefits and risks of the procedure, the likelihood of success, and the problems related to recuperation have been discussed with patient who agrees to proceed. The possible results of nontreatment and significant alternatives to the proposed procedure have also been explained, along with the risks and benefits of the alternatives. Risks and benefits of chosen anesthetic/sedation and possible use of blood/blood products (if appropriate) were discussed.The patient was identified as Martha Longoria and the procedure verified. A time out was held reviewing the patient identifiers, procedure planned and allergies. At this point the procedure was begun. The patient was positioned and prepped in routine fashion in the dorsal lithotomy position using yellowfin stirups. On examination under anesthesia,the uterus was retroverted to a normal size. Bladder was drained by catheter. A weighted speculum was then placed into the patient's posterior vagina. A dominick was used to expose the anterior lip of the cervix which was then grasped by a single tooth tenaculum.The cervix was then very easily dilated to a size 6 Hegar dilator. The hysteroscope was then placed under direct visualization. Warm lactated Ringer's was used as a distention medium. The patient's uterus was found to have endometrial hyperplasia by appearance with multiple polypoidal growths. Pictures were taken. Hysteroscope was removed and we proceeded with the myosure.Normal saline was used as the distension medium. The outflow channel was removed from the myosure camera and the myosure device was advanced into the cavity. Next the polyps was easily resected at its base using the myosure. Next the polyps was reached using the myosure, the cutting blade was approximated to the surface of the polyps, the cutting blade was activated and the resection of the polyps was then completed in multiple rotatory and withdrawal movements with the myosure. Remaining tissue were excised using the myosure device. The uterus appeared clear of any remaining excess tissue and the myosure camera and device were withdrawn from the cavity. Dilation and curettage was done to remove excessive tissues all of them were sent for pathology analysis there was minimal bleeding noted and tenaculum was removed. Hemostasis was acheived with a ringed forcep on anterior cervix. Estimated blood loss (ml): 20 Surgical staff Operation Date: 09/16/24 09:00 Case Staff Anesthesiologist: Domenico Rm Diagnosis Problem List Completed Was Problem List Reviewed/Reconciled?: Yes
--- NOTE | 2024-09-16 10:45 | SUR.PHASEII ---
1045 Patient meets discharge criteria from recovery, awake and alert, breathing unlabored, vital signs stable, denies pain, dressing intact; no bleeding noted, patient ate two jello's and drinking 7up; denies nausea, assisted with dressing into her clothing by her daughter, discharge instructions given to patient and patients daughter, daughter signed discharge instructions. Patient given all her belongings prior to discharge, transported via wheelchair and left in a private vehicle.
== END 2024-09-16 10:45 | disposition home or self-care (01) ==
PROVIDERS: Anesthesiology; PCP Family Medicine; Referring Provider Student in an Organized Health Care Education/Training Program; Visit Provider Student in an Organized Health Care Education/Training Program
PROC: 0UJD8ZZ Inspection of Uterus and Cervix, Via Natural or Artificial Opening Endoscopic (ICD-10-PCS; CPT 58555; principal; 2024-09-16 08:45)
DX: C54.1 Malignant neoplasm of endometrium (principal); N95.0 Postmenopausal bleeding; Z01.810 Encounter for preprocedural cardiovascular examination; J44.89 Other specified chronic obstructive pulmonary disease; E66.9 Obesity, unspecified; Z68.41 Body mass index [BMI] 40.0-44.9, adult; F32.A Depression, unspecified; Z86.73 Personal history of transient ischemic attack (TIA), and cerebral infarction without residual deficits; Z79.899 Other long term (current) drug therapy
CPT/HCPCS: 58558; 36415; 80053; 80074; 85025; 86703; 86850; 86900; 86901; 93005; A4217; A4649; J0131; J1100; J2250; J2405; J2704; J3010; J3490; J7120